=== PATIENT | female | born 2000 | race Caucasian/White ===

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

== ENCOUNTER 2019-10-18 20:13 | Emergency (ER) | payer BC, SELFPAY ==
[2019-10-18 20:15] VITALS: BP 133/82; PULSE 110; RESP 17; TEMP 36.9; O2SAT 98; BMI 22.1
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
[2019-10-18 21:13] VITALS: BP 132/80; PULSE 76; RESP 17; O2SAT 97
== END 2019-10-18 21:15 | disposition home or self-care (01) ==
LOC: ED 21:02
PROVIDERS: Emergency Provider Emergency Medicine; Family Provider Family Medicine; PCP Family Medicine
DX: S80.01XA Contusion of right knee, initial encounter (principal); W22.8XXA Striking against or struck by other objects, initial encounter; Y93.02 Activity, running; Y92.89 Other specified places as the place of occurrence of the external cause; Y99.8 Other external cause status
CPT/HCPCS: 73564; 99282

== ENCOUNTER → 2019-12-08 | Outpatient (CLI) | payer BC, SELFPAY ==
[2019-12-08 17:34] LABS: Chlamydia Trachomatis by PCR Negative (Negative); Neisserai gonorrhoeae by PCR Negative (Negative); Probe Check PASS; Sample Adequacy Control PASS; Specimen Processing Control PASS
== END | disposition home or self-care (01) ==
LOC: LABSPEC 12:27
PROVIDERS: PCP Family Medicine; Referring Provider Family Medicine; Visit Provider Family Medicine
DX: N39.0 Urinary tract infection, site not specified (principal)
CPT/HCPCS: 87077; 87086; 87088; 87186; 87491; 87591

== ENCOUNTER 2020-03-19 09:18 | Emergency (ER) | payer BC, SELFPAY ==
[2020-03-19 09:20] VITALS: BP 146/74; PULSE 81; RESP 18; TEMP 36.2; O2SAT 97; BMI 23.6
--- NOTE | 2020-03-19 09:35 | CT_ITS ---
STUDY: CT ABDOMEN AND PELVIS WITHOUT CONTRAST REASON FOR EXAM: Female, 19 years old. Right flank pain, UTI 1 month ago. No prior surgery. RADIATION DOSAGE (If Supplied By Facility): CTDIvol = ( 7.29 ) mGy, DLP = ( 396.82 ) mGycm TECHNIQUE: Transaxial images were obtained from the dome of the diaphragm to the symphysis pubis without oral contrast, and without intravenous contrast. Sagittal and coronal images were reconstructed. Individualized dose optimization techniques were used for this CT. COMPARISON: None. FINDINGS: The visualized lung bases are unremarkable. The visualized portions of the heart are within normal limits. Normal liver. Normal gallbladder and extrahepatic biliary system. Normal spleen. Normal pancreas. Normal bilateral adrenal glands. There is mild hydroureteronephrosis. There is no demonstrated ureteral or bladder calcifications. Normal left kidney. Normal visualized stomach. Normal small intestine. Normal colon. The appendix is visualized and appears normal. Normal abdominal aorta. Normal inferior vena cava. Normal retroperitoneum. There is mild thickening of the urinary bladder. There is enlarged right right adnexa (axial image #152 series 2) Normal abdominal wall. Normal osseous structures. CT/Abdomen/Pelvis without Cont IMPRESSION: Mild right hydroureteronephrosis. No demonstrated stones. Enlarged right adnexal region. Further evaluation with sonography is recommended. Mild thickening of the urinary bladder. Electronically Signed: Cristhian Tariq MD at 10:33 EDT Tel , Service support ,
[2020-03-19 09:37] LABS: Mucous, Urine 0 SEEN /hpf (<or=2+)
[2020-03-19 09:41] LABS: Color, Urine Straw (Yellow); Glucose, Dipstick Normal (Normal); Ketone-Dipstick Negative (Negative); Leukocyte Esterase-Dipstick 500 /ul (Negative); Nitrite-Dipstick Positive (Negative); Occult Blood-Urine 250 /ul (Negative); Protein-Dipstick 100 mg/dl (Negative); Specific Gravity, Urine 1.015 (1.002-1.030); Urine Bilirubin Dipstick Negative (Negative); Urine Clarity Sl. Cloudy (Clear); Urine Urobilinogen Normal (Normal)
[2020-03-19 09:46] LABS: Internal QC Validated? YES +Cl - CLEAR BKGD; Pregnancy, Urine Negative Negative
[2020-03-19 09:49] LABS: White Blood Cells >100 SEEN /hpf (0-5)
[2020-03-19 09:50] LABS: Red Blood Cells-Urine 10-25 SEEN /hpf (0-5)
[2020-03-19 09:51] LABS: Bacteria 3+ /hpf (None Seen); Squamous Epithelial Cells - UA 0-5 SEEN /hpf (5-10)
[2020-03-19 09:52] LABS: Renal Epithelial Cells 0-5 SEEN /hpf (0-5)
[2020-03-19 09:58] LABS: Absolute Lymphocyte Count 1.69 X10^3/uL (0.83-4.51); Absolute Neutrophil Count 9.2 X10^3/uL (2.0-7.7); Basophil# 0.03 X10^3/uL; Basophil% 0.3 % (0-1); Eosinophil# 0.04 X10^3/uL; Eosinophils% 0.3 % (0-5); Hematocrit 41.9 % (37-47); Hemoglobin 14.1 g/dL (12.0-15.0); Lymphocyte # 1.69 X10^3/ul (4.0); Lymphocyte % 14.3 % (19-41); Mean Corp Hgb Conc 33.7 g/dL (32-36); Mean Corpuscular Hgb 29.4 pg (27.0-32.0); Mean Corpuscular Volume 87.5 fL (81-99); Monocyte% 6.8 % (0-10); NRBC Flagged by Analyzer 0 % (0-5); Neutrophil # 9.18 X10^3/uL (2.7-7.7); Platelet Count 299 K/mm3 (150-450); RBC Distribution Width CV 11.9 % (11.6-14.6); RBC Distribution Width SD 38.1 fl (35.1-43.9); Red Blood Count 4.79 M/mm3 (4.2-5.4); White Blood Count 11.8 K/mm3 (4.4-11.0)
--- NOTE | 2020-03-19 09:58 | ED.VIS.GI ---
History of Present Illness Chief Complaint: Flank Pain Narrative: Patient presenting for evaluation secondary to flank pain. Patient reports that over the course of the last 2 to 3 days she has been dealing with right-sided flank pain. She states that this is a continuous type pain that is been getting somewhat worse over the last 24 hours. No exacerbating relieving factors, patient has been trying ibuprofen with minimal to no relief. Patient denies any other associated symptoms such as dysuria, vaginal discharge, radiation to the abdomen or groin, fevers, nausea, or vomiting. Patient reports that she is never had a history of kidney stones in the past. Review of systems otherwise negative. Past Medical History - Allergies and Home Meds Allergies/Adverse Reactions: Allergies No Known Allergies Allergy (Verified 03/19/20 09:22) Primary Care Physician: Sierra Mendez MD [Primary Care Provider] - Past Medical History: None Smoking Status: Never smoker Review of Systems All systems negative except as indicated General: Denies: Chills, Fever, Sweats Eyes: Denies: Visual changes - bilaterally, Diplopia ENT: Denies: Rhinorrhea, Sore throat Cardiovascular: Denies: Chest pain, Palpitations Respiratory: Denies: Dyspnea, Cough, Dyspnea on exertion Gastrointestinal: Denies: Abdominal pain, Nausea, Vomiting, Diarrhea, Melena, Hematochezia Genitourinary: Reports: - - Flank pain Musculoskeletal: Denies: Back pain, Extremity Pain Skin: Denies: Rash, Wounds Neurological: Denies: Headache, Weakness, Numbness Physical Exam Vital Signs/Narrative: Vital Signs Temp Pulse Resp BP Pulse Ox 03/19/20 09:20 97.2 F L 81 18 146/74 H 97 Inital Vital Signs reviewed: Yes General: Well nourished, Well developed, No Acute Distress Head: Normocephalic, Atraumatic Eyes: Perrl, EOMI ENT: Moist mucous membranes, No rhinorrhea Neck: Supple, Nontender Cardiovascular: Regular rate, Regular rhythm, No murmurs Respiratory: No distress, CTA bilaterally, Chest nontender Abdomen: Soft, Nontender, Nondistended, Normal bowel sounds Back: Nontender, Normal Inspection, CVA tenderness - Right Extremities: Nontender, No edema Skin: Normal color, No rash Neurological: Alert, Oriented x3, Cranial nerves II-XII grossly intact, Normal Strength, Normal Sensation Psychological: Normal affect, Normal Mood Diagnostic/Tx/Re-eval Clinical Impression(s) from Imaging Studies Abdomen/Pelvis CT 03/19/20 09:35 IMPRESSION: Mild right hydroureteronephrosis. No demonstrated stones. Enlarged right adnexal region. Further evaluation with sonography is recommended. Mild thickening of the urinary bladder. Electronically Signed: Cristhian Tariq MD at 10:33 EDT Tel , Service support , Pelvis Ultrasound 03/19/20 10:50 IMPRESSION: Retroverted uterus. Mild free pelvic fluid. Electronically Signed: Kunal Padron MD at 12:05 EDT Tel , Service support , Laboratory Data 03/19/20 03/19/20 03/19/20 09:27 09:27 09:45 WBC 11.8 H RBC 4.79 Hgb 14.1 Hct 41.9 MCV 87.5 MCH 29.4 MCHC 33.7 RDW Std Deviation 38.1 RDW Coeff of Sohail 11.9 Plt Count 299 MPV 10.0 Immature Gran % (Auto) 0.300 Neut % (Auto) 78.0 H Lymph % (Auto) 14.3 L Avery % (Auto) 6.8 Eos % (Auto) 0.3 Baso % (Auto) 0.3 Absolute Neuts (auto) 9.2 H Absolute Lymphs (auto) 1.69 Nucleated RBC % 0 Sodium Potassium Chloride Carbon Dioxide Anion Gap BUN Creatinine Estim Creat Clear Calc Est GFR (MDRD) Af Amer Est GFR (MDRD) Non-Af BUN/Creatinine Ratio Glucose Calcium Urine Color Straw Urine Clarity Sl. Cloudy Urine pH 6.0 Ur Specific [place] 1.015 Urine Protein 100 H Urine Glucose (UA) Normal Urine Ketones Negative Urine Occult Blood 250 H Urine Nitrite Positive H Urine Bilirubin Negative Urine Urobilinogen Normal Ur Leukocyte Esterase 500 H Urine RBC 10-25 SEEN Urine WBC >100 SEEN Ur Squamous Epith Cells 0-5 SEEN Ur Renal Epithelial Cell 0-5 SEEN Urine Bacteria 3+ Urine Mucus 0 SEEN Urine Test Negative 03/19/20 09:45 WBC RBC Hgb Hct MCV MCH MCHC RDW Std Deviation RDW Coeff of Sohail Plt Count MPV Immature Gran % (Auto) Neut % (Auto) Lymph % (Auto) Avery % (Auto) Eos % (Auto) Baso % (Auto) Absolute Neuts (auto) Absolute Lymphs (auto) Nucleated RBC % Sodium 139 Potassium 3.8 Chloride 108 H Carbon Dioxide 24.0 Anion Gap 7 BUN 9 Creatinine 0.67 Estim Creat Clear Calc 139.98 Est GFR (MDRD) Af Amer 144 Est GFR (MDRD) Non-Af 119 BUN/Creatinine Ratio 13.4 Glucose 96 Calcium 9.3 Urine Color Urine Clarity Urine pH Ur Specific [place] Urine Protein Urine Glucose (UA) Urine Ketones Urine Occult Blood Urine Nitrite Urine Bilirubin Urine Urobilinogen Ur Leukocyte Esterase Urine RBC Urine WBC Ur Squamous Epith Cells Ur Renal Epithelial Cell Urine Bacteria Urine Mucus Urine Test - Medical Decision Making Patient presented secondary to flank pain. Initially I performed a CT on the patient to rule out the possibility of kidney stone. CBC and chemistry found to be unremarkable, urinalysis demonstrates evidence of infection. This was cultured, and the patient was given a dose of Rocephin. Patient was given Toradol and did have some improvement of her pain. CT imaging reported right-sided hydronephrosis and concern for a right sided adnexal mass. Patient denies any STI type symptoms, although I did send urine empirically for GC and Chlamydia testing which is pending. We performed a pelvis ultrasound on the patient, and it showed a small amount of pelvic free fluid but no evidence of adnexal mass, tubo-ovarian abscess, or other abnormalities. Patient at this point likely has pyelonephritis. Patient will be treated with a course of Bactrim. She will follow-up with primary care in 3 days, she understands signs and symptoms which to return. Disposition: Home ED Disposition - Plan for ED Patient: Disposition: Home or Assisted Living Diagnosis: Pyelonephritis Instructions: ED Pyelonephritis Female Adult Prescriptions: Smz/Tmp Ds [Bactrim Ds] 1 tab PO BID #14 tab Prescription Printed Referrals: Sierra Mendez MD [Primary Care Provider] - 2 Days
[2020-03-19 10:21] LABS: Anion Gap 7 (5-15); BUN 9 mg/dL (7-18); BUN/Creat Ratio 13.4 RATIO (10-20); Calcium,Total 9.3 mg/dL (8.5-10.1); Chloride 108 mmol/L (98-107); Creatinine, Serum 0.67 mg/dL (0.55-1.02); EST Glomerular Filtration Rate 119 mL/min (>60); Est Glom Filt Rate - Afr Amer 144 mL/min (>60); Estimated Creatinine Clearance 139.98 ml/min; Glucose 96 mg/dL (74-106); Potassium 3.8 mmol/L (3.5-5.1); Sodium Level 139 mmol/L (136-145)
--- NOTE | 2020-03-19 10:50 | US_ITS ---
STUDY: ULTRASOUND OF THE FEMALE PELVIS - COMPLETE REASON FOR EXAM: Female, 19 years old. FLANK PAIN W/ persistent UTI LMP: 02/27/2020 TECHNIQUE: Transvaginal TECHNICAL QUALITY: Adequate. COMPARISON: None. FINDINGS: The uterus is retroverted and is in a midline position. The uterus measures 5.9 x 3.3 x 2.8 cm. Normal uterine cervix. The endometrium measures 12 mm in thickness, and is hyperechoic. There is no demonstrated endometrial mass. There is no demonstrated myometrial mass. I.U.D. - The patient does not have an I.U.D. The right ovary is visualized. The right ovary measures 4.0 x 3.0 x 2.6 cm. There is no right ovarian cyst or ovarian mass. There is no visualized right adnexal mass or complex lesion. There is normal arterial and normal venous vascularity. The left ovary is visualized. The left ovary measures 2.7 x 1.7 cm. There is no left ovarian cyst or ovarian mass. There is no visualized left adnexal mass or complex lesion. There is normal arterial vascularity. There is minimal fluid in the cul-de-sac.Polycystic ovary disease: No. US/Pelvic (Non ) IMPRESSION: Retroverted uterus. Mild free pelvic fluid. Electronically Signed: Kunal Padron MD at 12:05 EDT Tel , Service support ,
[2020-03-19] MEDS: Ketorolac 30 MG/ML Syringe 15 MG IV (10:53)
[2020-03-19] MEDS: Ceftriaxone 1 GM/50 ML BAG IV (10:54)
[2020-03-19 11:54] VITALS: BP 129/68; PULSE 66; RESP 15; O2SAT 99
[2020-03-19 11:56] VITALS: BP 124/71; PULSE 71; RESP 12; O2SAT 98
[2020-03-19 12:48] VITALS: BP 121/63; PULSE 72; RESP 15; O2SAT 99
[2020-03-19 14:07] LABS: Chlamydia Trachomatis by PCR Negative (Negative); Neisserai gonorrhoeae by PCR Negative (Negative); Probe Check PASS; Sample Adequacy Control PASS; Specimen Processing Control PASS
== END 2020-03-19 12:52 | disposition home or self-care (01) ==
PROVIDERS: Physician Assistant Medical; Emergency Provider Emergency Medicine; PCP Family Medicine
DX: N12 Tubulo-interstitial nephritis, not specified as acute or chronic (principal)
CPT/HCPCS: 74176; 76856; 80048; 81001; 81025; 85025; 87077; 87086; 87088; 87186; 87491; 87591; 96365; 96375; 99283; J7050; A4216; J2405

== ENCOUNTER → 2020-03-24 | Outpatient (CLI) | payer BC, SELFPAY ==
[2020-03-19 09:20] VITALS: BMI 23.6
--- NOTE | 2020-03-24 11:25 | US_ITS ---
STUDY: ABDOMINAL ULTRASOUND REASON FOR EXAM: Female, 19 years old. RIGHT FLANK PAIN TECHNIQUE: Transabdominal ultrasound was performed with real-time and static campos scale imaging. TECHNICAL QUALITY: Adequate. COMPARISON: None. FINDINGS: Liver: The liver measures 15.7 cm. There is increased echogenicity consistent with mild degree of fatty infiltration. The bile ducts are within normal limits. There is hepatic color flow. The direction of portal flow is hepatopetal. There is no demonstrated mass lesion. Portal vein measurement: Gallbladder: Normal distended gallbladder. The gallbladder wall measures 2.0 mm. There is a negative sonographic Raygoza''s sign. There is no pericholecystic fluid. There are no gallstones. Common Bile Duct (C.B.D.): The common bile duct measures 3.3 mm. Pancreas: Normal size of the head, body and tail of the pancreas. There is normal echogenicity of the pancreas. There is no demonstrated pancreatic mass or cyst. Spleen: Normal size of the spleen. The spleen measures 10.9 cm x 5.2 cm x 4.2 cm. Right Kidney: Normal size of the right kidney. The right kidney measures 11.2 cm x 5.3 cm x 3.7 cm. Normal renal cortex. The right cortex measures 1.4 cm. There is no demonstrated renal mass or cyst. There is no right hydronephrosis. Left Kidney: Normal size of the left kidney. The left kidney measures 10.6 cm x 4.9 cm x 4.4 cm. Normal renal cortex. The left cortex measures 1.2 cm. There is no demonstrated renal mass or cyst. There is no left hydronephrosis. Aorta: Unremarkable I.V.C.: The IVC is patent. There is no ascites. US/Abdomen Complete IMPRESSION: There is a mild degree of fatty infiltration of the liver. Electronically Signed: Brando Amador, at 14:30 EDT , Service support ,
== END | disposition home or self-care (01) ==
PROVIDERS: PCP Family Medicine; Visit Provider Family Medicine
DX: R10.9 Unspecified abdominal pain (principal)
CPT/HCPCS: 76700

== ENCOUNTER → 2020-07-11 | Outpatient (CLI) | payer BC, SELFPAY | END | disposition home or self-care (01) | PROVIDERS: PCP Family Medicine; Referring Provider Family Medicine; Visit Provider Family Medicine | DX: Z20.828 Contact with and (suspected) exposure to other viral communicable diseases (principal) | CPT/HCPCS: 87635; U0003 ==

== ENCOUNTER → 2021-08-20 | Outpatient (CLI) | payer SELFPAY | END | disposition home or self-care (01) | PROVIDERS: PCP Family Medicine; Referring Provider Registered Nurse; Visit Provider Registered Nurse | DX: N39.0 Urinary tract infection, site not specified (principal) ==

== ENCOUNTER → 2024-01-29 | Outpatient (CLI) | payer BC, SELFPAY ==
[2024-01-31 08:10] LABS: Chlamydia By Nucleic Acid AMP Negative (Negative); Gonococcus By Nucleic Acid AMP Negative (Negative)
== END | disposition home or self-care (01) ==
PROVIDERS: PCP Family Medicine; Referring Provider Advanced Practice Midwife; Visit Provider Advanced Practice Midwife
DX: Z34.00 Encounter for supervision of normal first pregnancy, unspecified trimester (principal); Z3A.00 Weeks of gestation of pregnancy not specified
CPT/HCPCS: 87086; 87491; 87591

== ENCOUNTER → 2024-03-25 | Outpatient (CLI) | payer BC, SELFPAY ==
[2024-03-25 09:07] LABS: Absolute Lymphocyte Count 1.97 X10^3/uL (0.83-4.51); Basophil# 0.04 X10^3/uL; Basophil% 0.5 % (0-1); Eosinophil# 0.07 X10^3/uL; Eosinophils% 0.8 % (0-5); Hematocrit 36.3 % (37-47); Hemoglobin 12.5 g/dL (12.0-15.0); Lymphocyte # 1.97 X10^3/ul (0.83-4.51); Lymphocyte % 22.7 % (19-41); Mean Corp Hgb Conc 34.4 g/dL (32-36); Mean Corpuscular Hgb 30.3 pg (27.0-32.0); Mean Corpuscular Volume 87.9 fL (81-99); Mean Platelet Vol. 9.9 fl (6.2-12.0); Monocyte# 0.51 X10^3/uL; Monocyte% 5.9 % (0-10); NRBC Flagged by Analyzer 0 % (0-5); Neutrophil # 6.03 X10^3/uL (2.7-7.7); Neutrophil % 69.5 % (47-70); Platelet Count 239 K/mm3 (150-450); RBC Distribution Width CV 12.7 % (11.6-14.6); RBC Distribution Width SD 40.9 fl (35.1-43.9); Red Blood Count 4.13 M/mm3 (4.2-5.4); White Blood Count 8.7 K/mm3 (4.4-11.0)
[2024-03-25 09:59] LABS: HIV - WCH Non-Reactive (Nonreactive); Hepatitis B Surface Antigen Non-Reactive (Nonreactive); Hepatitis C Antibody Non-Reactive (Nonreactive); Rubella IgG Reactive (Nonreactive); Syphilis Antibodies Non-reactive
[2024-03-26 06:10] LABS: V-Zoster IgG (Immunity) 1883 index (Immune >165)
== END | disposition home or self-care (01) ==
LOC: PAVLAB 08:36
PROVIDERS: PCP Family Medicine; Referring Provider Advanced Practice Midwife; Visit Provider Advanced Practice Midwife
DX: Z34.00 Encounter for supervision of normal first pregnancy, unspecified trimester (principal); Z3A.00 Weeks of gestation of pregnancy not specified; Z28.39 Other underimmunization status
CPT/HCPCS: 36415; 85025; 86703; 86762; 86780; 86787; 86803; 86850; 86900; 86901; 87340

== ENCOUNTER 2024-06-02 09:47 | Outpatient (CLI) | payer BC, SELFPAY ==
[2024-06-02 10:42] LABS: Absolute Lymphocyte Count 1.53 X10^3/uL (0.83-4.51); Absolute Neutrophil Count 6.8 X10^3/uL (2.0-7.7); Basophil# 0.03 X10^3/uL; Basophil% 0.3 % (0-1); Eosinophil# 0.06 X10^3/uL; Eosinophils% 0.7 % (0-5); Hematocrit 33.2 % (37-47); Hemoglobin 11.2 g/dL (12.0-15.0); Lymphocyte # 1.53 X10^3/ul (0.83-4.51); Mean Corp Hgb Conc 33.7 g/dL (32-36); Mean Corpuscular Hgb 29.7 pg (27.0-32.0); Mean Corpuscular Volume 88.1 fL (81-99); Mean Platelet Vol. 10.4 fl (6.2-12.0); Monocyte# 0.59 X10^3/uL; Monocyte% 6.5 % (0-10); NRBC Flagged by Analyzer 0 % (0-5); Neutrophil # 6.75 X10^3/uL (2.7-7.7); Neutrophil % 74.8 % (47-70); Platelet Count 224 K/mm3 (150-450); RBC Distribution Width CV 12.5 % (11.6-14.6); RBC Distribution Width SD 39.8 fl (35.1-43.9); Red Blood Count 3.77 M/mm3 (4.2-5.4)
[2024-06-02 10:59] LABS: Glucose Challenge Gest 1H 50g 117 mg/dL (70-140)
[2024-06-02 11:32] LABS: HIV - WCH Non-Reactive (Nonreactive); Syphilis Antibodies Non-reactive
== END 2024-06-02 23:59 | disposition home or self-care (01) ==
PROVIDERS: PCP Family Medicine; Referring Provider Nurse Practitioner Women's Health; Visit Provider Nurse Practitioner Women's Health
DX: Z34.92 Encounter for supervision of normal pregnancy, unspecified, second trimester (principal); Z3A.22 22 weeks gestation of pregnancy; Z13.1 Encounter for screening for diabetes mellitus
CPT/HCPCS: 36415; 82950; 85025; 86703; 86780

== ENCOUNTER 2024-08-06 | Inpatient (IN) | payer OTHER, SELFPAY ==
--- OUTSIDE RECORDS SUMMARY | 2024-08-05 22:59 | XMS RPT_ITS | CCD ---
Author Organization [facility] Care Team Providers Care Printed Forms Proofreader Name Role Phone HIMANSHU ARCE Referring UnavailHALEY Ward Primary Care Unavailable HANNAH LEMA Attending Unavailable HIMANSHU ARCE Referring UnavailHALEY Wrad Primary Care Unavailable DAVION RANKIN Attending Unavailable HIMANSHU ARCE Attending UnavailHIMANSHU Acosta Referring UnavailHALEY Ward Primary Care Unavailable HIMANSHU ARCE Referring UnavailELLE Leblanc Attending Unavailable HALEY SAHU Primary Care Unavailable HIMANSHU ARCE Referring UnavailRONEY Merchant Attending Unavailable HALEY SAHU Primary Care Unavailable Encounters Encounter Date Encounter Type Care Provider Facility Start: 07-27-2024 End: 07-27-2024 ambulatory [facility]U [facility] Start: 06-28-2024 End: 06-28-2024 ambulatory HIMANSHU ARCE [facility] Start: 05-31-2024 End: 05-31-2024 ambulatory HIMANSHU ARCE [facility] Start: 05-05-2024 End: 05-05-2024 ambulatory HIMANSHU ARCE [facility] Start: 04-15-2024 End: 04-15-2024 ambulatory HIMANSHU ARCE [facility] Payers Date Payer Category Payer Unknown [id number] 1999 Unknown [id number]. [id number] 1999 Unknown [id number] 1999 Unknown [id number]. [id number] Unknown [id number] Summary Purpose Family History No Family History Records Found Advance Directives No Advanced Directives Records Found Additional Source Comments INFORMATION SOURCE (unrecogn ized section and content) DATE CREATED AUTHOR 07/28/2024 [place] FOR RECORDS PERTAINING TO PATIENTS WHO ARE OR HAVE BEEN ENROLLED IN A CHEMICAL DEPENDENCY/SUBSTANCEABUSE PROGRAM, SOME INFORMATION MAY BE OMITTED. This clinical summary was aggregated from multiple sources. Caution should be exercised in using it in the provision of clinical care. This summary normalizes information from multiple sources, and as a consequence, information in this document may materially change the coding, format and clinical context of patient data. In addition, data may be omitted in some cases. CLINICAL DECISIONS SHOULD BE BASED ON THE PRIMARY CLINICAL RECORDS. [employer] provides no warranty or guarantee of the accuracy or completeness of information in this document.
[2024-08-05 23:03] VITALS: BMI 33.3
[2024-08-05 23:16] VITALS: BP 138/88; PULSE 86; RESP 16; TEMP 37.4; O2SAT 98
[2024-08-05 23:36] VITALS: PULSE 79; O2SAT 98
[2024-08-05 23:41] VITALS: PULSE 81; O2SAT 98
[2024-08-05 23:46] VITALS: PULSE 83; O2SAT 98
[2024-08-05 23:51] VITALS: PULSE 84; O2SAT 98
[2024-08-05 23:56] VITALS: PULSE 93; O2SAT 98
[2024-08-05 23:58] LABS: ROM Internal Control Test YES-OK TO RESULT pt. (Internal QC); ROM Patient Test POSITIVE (Negative)
[2024-08-06] VITALS (74 sets, daily range): BP systolic 100–208; BP diastolic 54–142; PULSE 68–166; RESP 14–20; TEMP 36.5–37.7; O2SAT 96–99
--- NOTE | 2024-08-06 | PLAC_PTH ---
PATHOLOGY RESULTS PATIENT: MARILU TATE LOC: WP U#:[id number] AGE/SX: 23/F ROOM: WP017 RE08/06/[address]: Lisa Rubio CNM : 2000 BED: 1 DIS: 08/08/2024 SPEC #: [id number] RECD: 08/06/24 21:56 STATUS: ISMA RELuca #: [id number] LILY: 08/06/24 00:[address]: Lisa Rubio DEPT: SURGICAL PATHOLOGY RECD BY: Ashok John ENTERED: 08/09/24 08:17 SP TYPE: PLACENTA OTHR DR: Dr. Ren Webster MD Tissues: Placenta, NOS Procedures: Surgery Specimen Level V HEADER OPERATION: Vaginal delivery PRE-OP DIAGNOSIS: PPROM TISSUE SUBMITTED: Placenta MICROSCOPIC DIAGNOSIS Placenta: Placental disc - third trimester placenta (450 gm). Membranes - no pathologic diagnosis. Umbilical cord - three blood vessels and no pathologic diagnosis. SJ:mr 08/10/2024 MICROSCOPIC DESCRIPTION Slides are reviewed. GROSS DESCRIPTION SPECIMEN: PLACENTA / CLINICAL INFORMATION: A. Weight: 2.865 kg B. Gestational Age: 36 weeks C. Sex: Male PLACENTAL WEIGHT (POST FIXATION): 450 gm PLACENTAL DIMENSIONS: 18.5 x 17.0 x 3.0 cm PLACENTAL SHAPE: Usual ovoid PLACENTAL WEIGHT FOR GESTATIONAL AGE: Within 10-99th percentile MEMBRANES - Present A. Insertion: Marginal B. Site of rupture from edge: 5.0 cm from edge of placental disc C. Color of membrane: Craig-campos D. Abnormalities: None UMBILICAL CORD - Present A. Color: Craig-campos B. Insertion: Paracentral C. Length: 38.0cm D. Diameter: 1.0 cm E. Number of vessels: Three F. Abnormalities: None PLACENTAL DISC - Present A. Color of surface: Craig-campos B. surface abnormalities: None C. Maternal cotyledons: Intact with minimal tears D. Attached retro placental clot: A few retro placental blood clots are also noted E. Cut surface: Dark red and spongy F. Lesions: None G. Separate clot: Multiple blood clots weighing 28gm and measuring in aggregate 7.0 x 6.0 x 2.5cm SECTIONS SUBMITTED: (6 cassettes) 1. Membrane roll 2. Cord, maternal end 3. Cord, end 4. Placental disc, and maternal surfaces 5. Placental disc, and maternal surfaces 6. Placental disc, and maternal surfaces SJ.mr 08/09/2024 TC:5 CPT: 92700
--- OUTSIDE RECORDS SUMMARY | 2024-08-06 00:05 | XMS RPT_ITS | CCD ---
Author Organization [facility] Care Team Providers Care Motion Picture Scene Builder Name Role Phone HIMANSHU ARCE Referring UnavailHALEY Ward Primary Care Unavailable HANNAH LEMA Attending Unavailable HIMANSHU ARCE Referring UnavailHALEY Ward Primary Care Unavailable DAVION RANKIN Attending Unavailable [...] Start: 06-28-2024 End: 06-28-2024 ambulatory HIMANSHU ARCE [facility] Start: 05-31-2024 End: 05-31-2024 ambulatory HIMANSHU ARCE [facility] Start: 05-05-2024 End: 05-05-2024 ambulatory HIMANSHU ARCE [facility] Start: 04-15-2024 End: 04-15-2024 ambulatory HIMANSHU ARCE [facility] Payers Date Payer Category Payer Unknown [id number] [id number] 1999 Unknown [id number] 2.16. [id number] 1999 Unknown [id number]. [id number] 1999 Unknown [id number] 2.16. [id number] Unknown [id number] Summary Purpose Family History No Family History Records Found Advance Directives No Advanced Directives Records Found Additional Source Comments INFORMATION SOURCE (unrecogn ized section and content) DATE CREATED AUTHOR 07/28/2024 [facility] FOR RECORDS PERTAINING TO PATIENTS WHO ARE [...] BE BASED ON THE PRIMARY CLINICAL RECORDS. [employer] provides no warranty or guarantee of the accuracy or completeness of information in this document.
[2024-08-06 00:29] LABS: Absolute Lymphocyte Count 2.33 X10^3/uL (0.83-4.51); Absolute Neutrophil Count 7.9 X10^3/uL (2.0-7.7); Basophil# 0.05 X10^3/uL; Basophil% 0.4 % (0-1); Eosinophil# 0.13 X10^3/uL; Eosinophils% 1.1 % (0-5); Hematocrit 35.1 % (37-47); Hemoglobin 11.7 g/dL (12.0-15.0); Lymphocyte # 2.33 X10^3/ul (0.83-4.51); Mean Corp Hgb Conc 33.3 g/dL (32-36); Mean Corpuscular Hgb 28.1 pg (27.0-32.0); Mean Corpuscular Volume 84.4 fL (81-99); Mean Platelet Vol. 11.8 fl (6.2-12.0); Monocyte# 1.14 X10^3/uL; Monocyte% 9.8 % (0-10); NRBC Flagged by Analyzer 0 % (0-5); Neutrophil % 67.8 % (47-70); Platelet Count 225 K/mm3 (150-450); RBC Distribution Width CV 12.9 % (11.6-14.6); RBC Distribution Width SD 39.8 fl (35.1-43.9); Red Blood Count 4.16 M/mm3 (4.2-5.4); White Blood Count 11.7 K/mm3 (4.4-11.0)
[2024-08-06] MEDS: Ampicillin 2 GM in 0.9% Normal Saline (100mL MB+) 100 ML IV (00:38)
[2024-08-06 01:08] LABS: Syphilis Antibodies Non-reactive
[2024-08-06] MEDS: Lactated Ringers 1,000 ML 999 ML IV (01:20)
[2024-08-06 01:54] LABS: Group B Strep DNA By PCR Negative (Negative); Internal Control PASS; Probe Check PASS; Specimen Processing Control PASS
[2024-08-06] MEDS: fentaNYL-bupivacaine (epidural) 100 ML BAG EPIDURAL ×3 (02:15→11:15)
[2024-08-06] MEDS: Lactated Ringers 1,000 ML 50 ML IV (02:15)
--- NOTE | 2024-08-06 05:24 | HP.PCM.OB_ITS ---
HPI - General General Date of Admission: 08/06/24 HPI Narrative MARILU TATE, is a 23 F @ 36w1d who presents with SROM clear fluid regular ctx. uncomlicated Maternal Data Information XAVIER Calculator Estimated Delivery Date Method Current WG Current Estimate 09/02/24 LMP (Certain) 36w 1d PFSH PFSH Medical History no medical history Home Medications ?Medication ?Instructions ?Recorded ?Last Taken ?Type multivitamin no.47-iron fum 27 1 cap PO DAILY 01/20/24 Unknown History mg-folate no.1 1 mg-dha 300 mg capsule (PNV-DHA) Allergy/AdvReac Type Severity Reaction Status Date / Time No Known Allergies Allergy Verified 07/27/24 09:10 Social History adopted: No household members: significant other current occupational status: employed current occupation: Operations Support Coordinator current occupational exposures/hazards: No pets and animals: Yes (Avoid litterbox) pets and animals: cat(s) history of recent travel: Yes ([place]) out of state: Yes out of country: No sexually active: Yes Smoking Status: Never smoker alcohol intake: current alcohol intake frequency: a few times a month details: Not while substance use type: does not use well-balanced diet: daily or most days caffeine: No eating out: 1-3 times/week during the past year weight has: remained stable what type of physical activity do you participate in: walking frequency: daily duration: < 15 minutes/day lien/worship: [employer] seatbelt use: always do you feel safe at home: Yes additional social history: ANTHONY Lopez History 1 Elective abortions Hx Para 0 Spontaneous abortions Hx # Term Pregnancies Ectopic pregnancies Hx # Pregnancies Multiple births # of living children Visit Details Expected Delivery Route/Plan Labor Preferences- CB/BF classes: encouraged labor support person: John; her mom Charlene labor intervention preferences: [] pain management options preferred: epidural cut cord/dad catch: no : yes PP control planned: discussed discussed possible routes of delivery and associated risks: [] special requests: [] Plans Covid status: [] Flu vaccine: declined Tdap vaccine: declines Rhogam: NA LARC form signed: yes movement and labor precautions reviewed. Problem list reviewed and updated with the most current plan of care details and appropriate orders placed. Relevant counseling for the gestational age provided. Continue routine care and follow up unless otherwise noted in visit notes/problem list details OB Flowsheet Initial Weight: Not Recorded Date -?-?-?-?-?-?-?-?-?-?-?-?- EGA Weight BP Urine Prot -?-?-?-?-?-?-?-?-?-?-?-?- Glucose FHR FuHt Pres Dilation -?-?-?-?-?-?-?-?-?-?-?-?- Effaced St Visit Note 01/29/24 -?-?-?-?-?-?-?-?-?-?-?-?- 9w 0d 174 lb 132/83 -?-?-?-?-?-?-?-?-?-?-?-?- 171 -?-?-?-?-?-?-?-?-?-?-?-?- kw- CRL cons wit h dates. wants to decide on NIPT. HAs history of medical trauma. was very tearful at appt. only able to obtain GCC today. will need PP pap 02/26/24 -?-?-?--?-?-?-?-?-?-?-?-?- 13w 0d 177 lb 120/76 Negative -?-?-?-?-?-?-?-?-?-?-?-?- Negative 160 -?-?-?-?-?-?-?-?-?-?-?-?- MH-No VB or cram ping. Declines genetic and carrier screen. Nausea problematic-[place] sent. 03/22/24 -?-?-?-?-?-?-?-?-?-?-?-?- 16w 4d 179 lb 116/74 Negative -?-?-?-?-?-?-?-?-?-?-?-?- Negative 150 -?-?-?-?-?-?-?-?-?-?-?-?- SM- no vb crmapi ng 05/04/24 -?-?-?-?-?-?-?-?-?-?-?-?- 22w 5d 189 lb 2 oz 109/70 Nega tive -?-?-?-?-?-?-?-?-?-?-?-?- Negative 146 -?-?-?-?-?-?-?-?-?-?-?-?- -No VB, LOF. G ood FM. -No VB, LOF. Good FM. Edgar mckeon concerns. Has follow up US with MFM tomorrow 06/02/24 -?-?-?-?-?-?-?-?-?-?-?-?- 26w 6d 196 lb 107/64 Negative -?-?-?-?-?-?-?-?-?-?-?-?- Negative 135 26 -?-?-?-?-?-?-?-?-?-?-?-?- JV- pt doing glu cola today. no complaints. naming baby [place]. 06/17/24 -?-?-?-?-?-?-?-?-?-?-?-?- 29w 0d 201 lb 123/80 Negative -?-?-?-?-?-?-?-?-?-?-?-?- Negative 125 29 -?-?-?-?-?-?-?-?-?-?-?-?- - no vb lof go od fm no regular ctx baseline fht difficult to discern at bedside, nst done and reactive, GA appropriate no signifciant decels, hiccups heard 06/28/24 -?-?-?-?-?-?-?-?-?-?-?-?- 30w 4d 201 lb 6 oz 115/78 Nega tive -?-?-?-?-?-?-?-?-?-?-?-?- Negative 139 30 -?-?-?-?-?-?-?-?-?-?-?-?- -NO VB, LOF. G ood FM. Declines tdap. Larc. 07/12/24 -?-?-?-?-?-?-?-?-?-?-?-?- 32w 4d 204 lb 120/82 Negative -?-?-?-?-?-?-?-?-?-?-?-?- Negative 130 33 -?-?-?-?-?-?-?-?-?-?-?-?- kw- no vb/lof/ct x. good fm. no concerns 07/27/24 -?-?-?-?-?-?-?-?-?-?-?-?- 34w 5d 212 lb 117/79 Negative -?-?-?-?-?-?-?-?-?-?-?-?- Negative 140 36 -?-?-?-?-?-?-?-?-?-?-?-?- SM- no vb lof go od fm no regulr ctx NST FHR Rate Baby A Baseline: 140 Variability:: Moderate Accelerations:: 15 x 15 Decelerations:: None NST Reactive:: Yes FHR Category:: Category I Uterine Activity:: q3-5 ROS Constitutional Constitutional: Reports systems reviewed and no addt'l complaints, except as documented ENT HEENT: Reports systems reviewed and no addt'l complaints, except as documented Cardiovascular Cardiovascular: Reports systems reviewed and no addt'l complaints, except as documented Respiratory/Chest Respiratory/Chest: Reports systems reviewed and no addt'l complaints, except as documented Gastrointestinal Gastrointestinal: Reports systems reviewed and no addt'l complaints, except as documented and nausea; Denies abdominal pain Genitourinary Genitourinary: Reports systems reviewed and no addt'l complaints, except as documented, contractions Details: present and frequency (regular ) and movement Details: present Musculoskeletal Musculoskeletal: Reports systems reviewed and no addt'l complaints, except as do cumented Integumentary Integumentary: Reports as per HPI Neurologic Neurologic: Reports systems reviewed and no addt'l complaints, except as documented Endocrine Endocrinology: Reports systems reviewed and no addt'l complaints, except as documented Vital Signs Vital Signs Vital Signs: 08/05/24 23:16 08/05/24 23:16 08/05/24 23:16 Temperature Temperature Source Temporal Pulse Rate 86 Respiratory Rate Blood Pressure 138/88 H BP Systolic 138 BP Diastolic 88 Pulse Ox 08/05/24 23:16 08/05/24 23:16 08/05/24 23:16 Temperature 99.4 F H Temperature Source Pulse Rate Respiratory Rate 16 Blood Pressure BP Systolic BP Diastolic Pulse Ox 98 08/05/24 23:36 08/05/24 23:36 08/05/24 23:41 Temperature Temperature Source Pulse Rate 79 81 Respiratory Rate Blood Pressure BP Systolic BP Diastolic Pulse Ox 98 08/05/24 23:41 08/05/24 23:46 08/05/24 23:46 Temperature Temperature Source Pulse Rate 83 Respiratory Rate Blood Pressure BP Systolic BP Diastolic Pulse Ox 98 98 08/05/24 23:51 08/05/24 23:51 08/05/24 23:56 Temperature Temperature Source Pulse Rate 84 93 Respiratory Rate Blood Pressure BP Systolic BP Diastolic Pulse Ox 98 08/05/24 23:56 08/06/24 00:01 08/06/24 00:01 Temperature Temperature Source Pulse Rate 92 Respiratory Rate Blood Pressure BP Systolic BP Diastolic Pulse Ox 98 98 08/06/24 00:06 08/06/24 00:06 08/06/24 00:11 Temperature Temperature Source Pulse Rate 83 93 Respiratory Rate Blood Pressure BP Systolic BP Diastolic Pulse Ox 98 08/06/24 00:11 08/06/24 01:33 08/06/24 01:33 Temperature Temperature Source Pulse Rate 81 Respiratory Rate Blood Pressure 160/85 H BP Systolic 160 BP Diastolic 85 Pulse Ox 98 08/06/24 01:33 08/06/24 01:35 08/06/24 01:35 Temperature Temperature Source Pulse Rate 82 Respiratory Rate Blood Pressure 168/84 H BP Systolic 168 BP Diastolic 84 Pulse Ox 97 08/06/24 01:35 08/06/24 01:35 08/06/24 01:35 Temperature 98.5 F Temperature Source Temporal Pulse Rate Respiratory Rate 14 Blood Pressure BP Systolic BP Diastolic Pulse Ox 08/06/24 01:56 08/06/24 01:56 08/06/24 01:57 Temperature Temperature Source Pulse Rate 108 H Respiratory Rate Blood Pressure 208/123 H BP Systolic 208 BP Diastolic 123 Pulse Ox 98 08/06/24 01:57 08/06/24 01:59 08/06/24 01:59 Temperature Temperature Source Pulse Rate 117 H 166 H Respiratory Rate Blood Pressure 161/73 H BP Systolic 161 BP Diastolic 73 Pulse Ox 08/06/24 01:59 08/06/24 02:01 08/06/24 02:01 Temperature Temperature Source Pulse Rate 111 H Respiratory Rate 20 H Blood Pressure BP Systolic BP Diastolic Pulse Ox 99 08/06/24 02:06 08/06/24 02:06 08/06/24 02:07 Temperature Temperature Source Pulse Rate 92 Respiratory Rate Blood Pressure 156/71 H BP Systolic 156 BP Diastolic 71 Pulse Ox 97 08/06/24 02:07 08/06/24 02:07 08/06/24 02:11 Temperature Temperature Source Pulse Rate 93 83 Respiratory Rate 14 Blood Pressure BP Systolic BP Diastolic Pulse Ox 08/06/24 02:11 08/06/24 02:14 08/06/24 02:14 Temperature Temperature Source Pulse Rate 91 Respiratory Rate Blood Pressure 147/79 H BP Systolic 147 BP Diastolic 79 Pulse Ox 98 08/06/24 02:14 08/06/24 02:16 08/06/24 02:16 Temperature Temperature Source Pulse Rate 94 Respiratory Rate 16 Blood Pressure BP Systolic BP Diastolic Pulse Ox 99 08/06/24 02:17 08/06/24 02:17 08/06/24 02:17 Temperature Temperature Source Pulse Rate 93 Respiratory Rate 14 Blood Pressure 135/71 H BP Systolic 135 BP Diastolic 71 Pulse Ox 08/06/24 02:21 08/06/24 02:21 08/06/24 02:22 Temperature Temperature Source Pulse Rate 92 Respiratory Rate Blood Pressure 127/60 H BP Systolic 127 BP Diastolic 60 Pulse Ox 98 08/06/24 02:22 08/06/24 02:22 08/06/24 02:26 Temperature Temperature Source Pulse Rate 92 89 Respiratory Rate 18 Blood Pressure BP Systolic BP Diastolic Pulse Ox 08/06/24 02:26 08/06/24 02:27 08/06/24 02:27 Temperature Temperature Source Pulse Rate 88 Respiratory Rate Blood Pressure 128/67 H BP Systolic 128 BP Diastolic 67 Pulse Ox 98 08/06/24 02:31 08/06/24 02:31 08/06/24 02:32 Temperature Temperature Source Pulse Rate 90 Respiratory Rate Blood Pressure 134/73 H BP Systolic 134 BP Diastolic 73 Pulse Ox 97 08/06/24 02:32 08/06/24 02:36 08/06/24 02:36 Temperature Temperature Source Pulse Rate 88 84 Respiratory Rate Blood Pressure BP Systolic BP Diastolic Pulse Ox 97 08/06/24 02:37 08/06/24 02:37 08/06/24 02:41 Temperature Temperature Source Pulse Rate 84 88 Respiratory Rate Blood Pressure 129/67 H BP Systolic 129 BP Diastolic 67 Pulse Ox 08/06/24 02:41 08/06/24 02:42 08/06/24 02:42 Temperature Temperature Source Pulse Rate 91 Respiratory Rate Blood Pressure 137/76 H BP Systolic 137 BP Diastolic 76 Pulse Ox 98 08/06/24 02:47 08/06/24 02:47 08/06/24 03:40 Temperature Temperature Source Pulse Rate 95 Respiratory Rate Blood Pressure 142/85 H 103/56 L BP Systolic 142 103 BP Diastolic 85 56 Pulse Ox 08/06/24 03:40 08/06/24 03:40 08/06/24 03:40 Temperature Temperature Source Pulse Rate 82 90 Respiratory Rate Blood Pressure BP Systolic BP Diastolic Pulse Ox 98 08/06/24 03:40 08/06/24 03:40 08/06/24 03:40 Temperature 97.7 F L Temperature Source Temporal Pulse Rate Respiratory Rate 14 Blood Pressure BP Systolic BP Diastolic Pulse Ox 08/06/24 04:25 08/06/24 04:25 08/06/24 04:26 Temperature Temperature Source Pulse Rate 84 Respiratory Rate Blood Pressure 106/59 L BP Systolic 106 BP Diastolic 59 Pulse Ox 97 08/06/24 04:26 08/06/24 04:26 08/06/24 04:26 Temperature Temperature Source Temporal Pulse Rate 85 Respiratory Rate 14 Blood Pressure BP Systolic BP Diastolic Pulse Ox 08/06/24 04:26 Temperature 98.9 F Temperature Source Pulse Rate Respiratory Rate Blood Pressure BP Systolic BP Diastolic Pulse Ox Weight Weight: 219 lb 5.759 oz Body Mass Index (BMI) 33.3 Physical Exam Const alert, oriented x3 and healthy appearing Constitutional Narrative: uncomfortable with contractions HEENT normocephalic and moist oral mucous membranes Head and Scalp: atraumatic Neck full ROM, no lymphadenopathy, supple and thyroid normal General: trachea midline Thyroid: thyroid normal Lymph Lymphatic: no lymphadenopathy noted Chest inspection of chest normal Resp normal respiratory effort Cardio regular rate GI normal to inspection, nondistended, normoactive bowel sounds, soft to palpation and non-tender Inspection: gravid external exam normal Bimanual Exam - Vag & Uterus: uterus non-tender Manual OB Exam: estimated gestational size appropriate, presentation cephalic, dilated, effaced and station Extremity normal to inspection General Extremity: Negative for edema Skin no rashes or lesions noted Neuro deep tendon reflexes 2+ bilaterally Motor Exam: strength 5/5 throughout and clonus absent Psych mental status grossly normal Labs Labs Labs: Blood Type O POSITIVE Antibody Screen NEGATIVE Hct 35.1 % (37-47) L Hgb 11.7 g/dL (12.0-15.0) L Syphilis Total Ab Non-reactive VZV IgG Antibody 1883 index (Immune >165) Rubella IgG Antibody Reactive (Nonreactive) Hep Bs Antigen Non-Reactive (Nonreactive) Hepatitis C Antibody Non-Reactive (Nonreactive) Chlamydia DNA (BELTRAN) Negative (Negative) N.gonorrhoeae DNA (BELTRAN) Negative (Negative) HIV 1&2 Antibody Non-Reactive (Nonreactive) Glucose 1 Hr 50 gm 117 mg/dL (70-140) Group B Strep DNA Negative (Negative) Assessment & Plan (1) 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 anatomy reveiwed (4) SROM (spontaneous rupture of membranes): PLAN: Plan Patient presents IAL, plan expectant management for , pitocin/AROM PRN if needed. Pain management: plans epidural. GBS unknown plan ampicillin. Management of any complications: none I have reviewed the [facility] and made any clinically relevant updates.
[2024-08-06] MEDS: Ampicillin 1,000 MG in 0.9% Normal Saline (50mL MB+) 50 ML 150 MG IV ×3 (05:38→13:46)
--- NOTE | 2024-08-06 08:42 | PN.OBGYN_ITS ---
Subjective Subjective comfortable with epidural Objective Data Objective Data Vital Signs: Vital Signs Temp Pulse Resp BP Pulse Ox 98.9 F 73 16 107/57 L 99 08/06/24 08:02 08/06/24 08:02 08/06/24 08:02 08/06/24 08:02 08/06/24 05:34 Weight: 219 lb 5.759 oz Body Mass Index (BMI) 33.3 Intake & Output: Intake and Output for Last 24 Hours 08/04/24 08/05/24 08/06/24 23:59 23:59 23:59 Intake Total 1150 / 1150 Output Total 700 / 700 Balance 450 / 450 Lab / Micro Data 08/06/24 00:15 Labs: Laboratory Results - last 24 hr 08/05/24 23:20: Vag Amniotic Fld Detect POSITIVE H, Group B Strep DNA Negative, Specimen Comment Not Reportable 08/06/24 00:15: WBC 11.7 H, RBC 4.16 L, Hgb 11.7 L, Hct 35.1 L, MCV 84.4, MCH 28.1, MCHC 33.3, RDW Std Deviation 39.8, RDW Coeff of Sohail 12.9, Plt Count 225, MPV 11.8, Immature Gran % (Auto) 0.900, Neut % (Auto) 67.8, Lymph % (Auto) 20.0, [place] % (Auto) 9.8, Eos % (Auto) 1.1, Baso % (Auto) 0.4, Absolute Neuts (auto) 7.9 H, Absolute Lymphs (auto) 2.33, Nucleated RBC % 0, Syphilis Total Ab Non- reactive, Blood Type O POSITIVE, Antibody Screen NEGATIVE Physical Exam Const alert Resp normal respiratory effort and normal air movement Manual OB Exam: presentation cephalic, dilated 7, effaced 90 and station 0 Amniotic Fluid: clear amniotic fluid Psych mental status grossly normal NST FHR Rate Baby A Baseline: 135 Variability:: Moderate Accelerations:: 15 x 15 Decelerations:: None NST Reactive:: Yes FHR Category:: Category I Uterine Activity:: q3 Assessment & Plan (1) SROM (spontaneous rupture of membranes): COMMENT: clear fluid. antibiotics for PPROM (2) Spontaneous onset of labor: COMMENT: Pitocin prn PLAN: cervical exam by 4 hours, if no change plan to add pitocin continue frequent reposition changes
[2024-08-06] MEDS: Oxytocin 10 UNITS/ML Vial IM (14:13)
--- NOTE | 2024-08-06 14:17 | OP.PCM_ITS ---
Assessment & Plan (1) (spontaneous vaginal delivery): COMMENT: EDWIN 36 weeks PPROM [place] Maternal Data Information XAVIER Calculator Estimated Delivery Date Method Current WG Current Estimate 09/02/24 LMP (Certain) 36w 1d Final XAVIER: 09/02/24 Final XAVIER Source: LMP Gestational age: 36 Vaginal Delivery Maternal Presentation Maternal Presentation: Spontaneous Rupture of Membranes Maternal Presentation: at 36 weeks with PPROM last night at 2230, clear fluid. spontaneous contractions progressed without intervention to fully dilated. Operative Information Date of Procedure: 08/06/24 Pre-Operative Diagnosis: see problem list Surgery / Procedure Performed: Spontaneous Vaginal Delivery Type of Anesthesia: Epidural Drain: Bustos to straight drain Estimated Blood Loss: 200 Time of Delivery: 13:55 Findings Description of Procedure: Patient began pushing and delivered the head in the DANYEL presentation. The head was delivered atraumatically and a loose nuchal cord ?1 was identified and easily reduced over the 's head. The anterior and posterior shoulders delivered without complication followed by the rest of the and the infant was placed on the maternal abdomen. Delayed cord clamping was employed for approximately 60 seconds. Cord was clamped and cut and gentle traction was applied to the cord and the placenta delivered spontaneously immediately following it was noted to be intact with three-vessel cord. The perineum and vagina were inspected and noted to have a 1st degree laceration that was repaired with 3-0 vicyrl. EBL was 200cc. Patient and infant tolerated delivery well. Dr. Montenegro updated on delivery. Presentation: Vertex Amniotic Membrane Rupture Type: Spontaneous Amniotic Fluid Description: Clear Placental Delivery Description: Spontaneous Placenta Disposition: [facility] Cord Vessel Description: 3 Vessels Cord Entanglement: Around neck x 1, loose Infant A Gender: Male (1 minute): 8 (5 minute): 9 Delayed Cord Clamping: Yes Post Vaginal Delivery Medications Given After Delivery: IM Pitocin Episiotomy Description: None Laceration: 1st degree Procedures Urinary/Genital [id number]: [id number] Vaginal Delivery [facility]
--- NOTE | 2024-08-06 14:22 | DCINST_ITS ---
Discharge Instructions Diet Discharge Diet: No restrictions Activity Discharge Activity: May Not Drive and May Shower May resume sexual activity in: 6 weeks Weight Bearing Status: Full weight bearing Dressing / Incision Call your doctor if your incision/area has: Sudden Increased Bleeding, Increased Pain/ Swelling and Foul Smelling Discharge Call your doctor if you observe: Fever of 101 or Higher, Numbness or Tingling, Change in Color, Inability to urinate, Inability to have a bowel movement, Using more than 1 pad per hour, Shortness of breath, Dizziness, Fainting spells, Chest pain, Calf discomfort and Uncontrolled pain Follow Up Care Please Follow Up With: Lisa Rubio CNM When: 6 weeks , please call office to make an appointment. Congratulations on the of your baby! Test Results: Test results from this visit will be discussed in further detail at your follow- up appointment, if applicable. Discharge Plan Admission Admit Date/Time: 08/06/24 00:00 Attending Provider: Lisa Rubio Primary Care Provider: Ren Webster Discharge Orders/Prescriptions Prescriptions: No Action PNV-DHA 27 mg iron-1 mg -300 mg capsule 1 cap PO DAILY Referrals / Follow Up: Ren Webster MD [Primary Care Provider] -
[2024-08-06] MEDS: Naproxen 500 MG Tablet PO (17:03)
[2024-08-06 22:05] LABS: Pathology Specimen OB SEE PATHOLOGY REPORT
[2024-08-06] MEDS: Acetaminophen 500 MG Tablet 1000 MG PO (22:14)
[2024-08-07] VITALS (11 sets, daily range): BP systolic 115–127; BP diastolic 58–79; PULSE 72–97; RESP 14–18; TEMP 36.2–37.1; O2SAT 97–98
--- NOTE | 2024-08-07 01:50 | NURSING ---
This RN in room to obtain blood sugar on . This RN obtaining blood sugar, crying. This RN asks patient if she would like this RN to get a formula bottle ready for her to feed . Patient barely responds, slightly nods head yes. Patient appears tearful and very slow moving. continues to cry as this RN hands bottle to patient. Patient unable to bring bottle to infants mouth, stares at crying infant and begins to cry. Patient begins to hyperventilate. When this RN asks patient what is wrong, patient responds with I'm so overwhelmed . This RN takes infant to feed infant bottle to him. Patients at bedside comforting patient. This RN reassuring patient that everything with the is going well, that infant is just crying because he is hungry, and instructs patient to take some deep breaths. Patient barely speaking, just nodding or shaking head slightly when asked questions. This RN suggests going to sleep for awhile, while sleeps in his crib. Patient and in agreement.
--- NOTE | 2024-08-07 08:18 | PCM.PN.CNM ---
Subjective Subjective Patient doing well without complaints. Tolerating PO. Ambulating and voiding without difficulty. Feeding well. Denies chest pain, shortness of breath, calf pain/swelling, fevers, chills, lightheadedness. Objective Data Objective Data Vital Signs: Vital Signs Temp Pulse Resp BP Pulse Ox O2 Del Method 97.2 F L 78 18 123/65 H 97 Room Air 08/07/24 04:37 08/07/24 04:37 08/07/24 04:37 08/07/24 04:37 08/07/24 04:37 08/07/24 04:37 Oxygen Delivery Method Room Air Weight: 219 lb 5.759 oz Body Mass Index (BMI) 33.3 Intake & Output: Intake and Output for Last 24 Hours 08/05/24 08/06/24 08/07/24 23:59 23:59 23:59 Intake Total 1583 / 1583 Output Total 2150 / 2150 300 / 300 Balance -567 / -567 -300 / -300 Lab / Micro Data 08/06/24 00:15 Physical Exam Const alert Neck full ROM Lymph Lymphatic: no lymphadenopathy noted Chest inspection of chest normal Resp normal respiratory effort and normal air movement Cardio regular rate and regular rhythm GI normal to inspection, nondistended, normoactive bowel sounds Uterus Palpation: uterus fundus firm Extremity normal to inspection and no calf tenderness Extremity Narrative: trace edema Skin no rashes or lesions noted Neuro oriented x3 Psych mental status grossly normal Assessment & Plan (1) (spontaneous vaginal delivery): COMMENT: 36 weeks PPROM [place] PLAN: s/p PPD # 1 1. routine post delivery care 2. bottle feeding- support given, ariella positive. 3. rh positive 4. rubella immune 5. plan d/c home tomorrow
[2024-08-07] MEDS: Benzocaine/Lanolin/Aloe Vera 85 GM Spray 1 SPRAY TOPICAL (08:53)
[2024-08-08] VITALS (7 sets, daily range): BP systolic 110–122; BP diastolic 64–66; PULSE 82–94; RESP 16; TEMP 36.9–37.3; O2SAT 98
--- NOTE | 2024-08-08 06:58 | NURSING ---
Mother emotional and crying overnight when infant crying. Observed mother feeding and interacting with infant and consoling infant prior to feeding. RN supported patient.
--- NOTE | 2024-08-08 07:21 | PCM.PN.CNM ---
Subjective Subjective Patient doing well without complaints. Tolerating PO. Ambulating and voiding without difficulty. Feeding well. Denies chest pain, shortness of breath, calf pain/swelling, fevers, chills, lightheadedness. Objective Data Objective Data Vital Signs: Vital Signs Temp Pulse Resp BP Pulse Ox O2 Del Method 98.5 F 87 16 122/66 H 98 Room Air 08/08/24 02:00 08/08/24 02:00 08/08/24 02:00 08/08/24 02:00 08/08/24 02:00 08/08/24 02:00 Oxygen Delivery Method Room Air Weight: 219 lb 5.759 oz Body Mass Index (BMI) 33.3 Intake & Output: Intake and Output for Last 24 Hours 08/06/24 08/07/24 08/08/24 23:59 23:59 23:59 Intake Total 1641.67 / 1641.67 Output Total 2150 / 2150 300 / 300 Balance -508.33 / -508.33 -300 / -300 Lab / Micro Data 08/06/24 00:15 Physical Exam Const alert Neck full ROM Lymph Lymphatic: no lymphadenopathy noted Chest inspection of chest normal Resp normal respiratory effort and normal air movement Cardio regular rate and regular rhythm GI normal to inspection, nondistended, normoactive bowel sounds Uterus Palpation: uterus fundus firm Extremity normal to inspection and no calf tenderness Extremity Narrative: trace edema Skin no rashes or lesions noted Neuro oriented x3 Psych mental status grossly normal Assessment & Plan (1) (spontaneous vaginal delivery): COMMENT: 36 weeks PPROM [place] PLAN: s/p PPD # 2 1. routine post delivery care 2. bottle feeding- support given 3. rh positive 4. rubella immune 5. plan d/c home vs hotel status based on infant status.
--- NOTE | 2024-08-08 08:06 | NURSING ---
Reviewed and agreed with Norma RN charting.
--- NOTE | 2024-08-08 08:08 | NURSING ---
Reviewed and agreed with Norma RN charting.
--- NOTE | 2024-08-08 13:00 | CASEMGMT ---
Social Work Assessment Labor and Delivery Unit Patient Address: [facility]?? [place] [address] Phone number: Date of Referral: 08/06/2024 Time of Referral: 16:04 Referred By: Lisa Rubio Date of Intervention: 08/08/2024 Time of Intervention: 13:01 Reason for Referral: Exhibiting anxiety symptoms History obtained from: Medical records, mother of baby (MOB) and father of baby (FOB).? Household composition: MOB, FOB (John Cruz, age 23) and son Linden, born 08/06/2024. Patient's parent/guardian status: MOB and FOB are not but have been together for almost 2 years. Both are actively involved and will be providing care for baby. MOB denied any concerns with domestic violence and described a positive and supportive relationship with the FOB. Medical History: ?:1, Para, now 1. MOB received PNC through [facility] beginning at 9 weeks and 0 days and visits appeared to be routine. Apgars: 8 and 9. Weight: 2945 grams. Trimming Machine Operator: Not yet identified but will be through [facility] in [place]. Educational Status: MOB and FOB denied any issues or concerns with reading or writing. MOB has some college as well as a Returns Clerk Certification. FOB reported he has both High School as well as Vocational training. Financial Status: MOB and FOB reported their income is sufficient to meet the needs of their family at this time. 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 HEENA is uncertain at this time if she is going to return to work multimedia specialist or department sales manager after her maternity leave.? FOB is currently employed multimedia specialist as a maddox and will be taking a minimum of a week off to help provide care for and support the MOB but is able to take off additional time if needed. During times when MOB and FOB are working, maternal grandparents (MGP?s) and PGP?s (PGP?s) as well as additional family members will be able to provide childcare as needed. Infant Supplies: MOB and FOB reported they have all the supplies they need for baby at this time including but not limited to: Car Seat, bassinet, pack-n-play, crib, diapers, bottles and clothing. Childcare/Caregiver(s):? MOB reported that during times when MOB and FOB are working, maternal grandparents (MGP?s) and PGP?s (PGP?s) as well as additional family members will be able to provide childcare as needed. When MOB and FOB are home, both will provide care for . Transportation:? MOB and FOB reported they are both licensed drivers and have a reliable vehicle to take baby to and from all medical appointments. No transportation issues identified. Programs/Agencies Involved: MOB and TREY denied any current programs or agencies involved at this time but will be looking into [facility] upon discharge. TREY reported he used to be involved in counseling as child to help cope with parental divorce however reported that issues have since been resolved. Children Services/Legal Issues:? Denied. Behavioral Health Issues: ??Mental Health History: MOB and FOB denied any history of mental health. ?Substance Use History: Denied.?Family History: TREY reported that alcoholism runs on his father?s side of the family. ??Drug Screens: ?None obtained at the time of this admission. ?? Family/Social Stressors: ?MOB and FOB denied any current family or social stressors. Support Systems: Ample.? MOB and FOB identified each other as their biggest supports and also identified MGP?s, PGP?s and ?s aunts and uncles on both sides of the family. ?MOB and FOB identified a strong support system at this time. Depression/Shaken Baby/Safe Sleeping: general lithographic worker provided verbal and written education on PPD, Safe Sleeping and Shaken Baby.? Parents verbalized an understanding. ??? ASSESSMENT:? MOB and FOB provided consent to social work visit. Upon arrival, MOB was lying in the hospital bed and FOB and paternal aunt were sitting at MOB?s bedside. [place] was with nursing getting a procedure done at the beginning of the visit. MOB and FOB were agreeable to the paternal aunt being present during the visit/assessment. Both MOB and FOB were verbally engaged. general lithographic worker observed positive interaction between the MOB and FOB. Towards the end of the session. returned and the paternal aunt held and was observed to be very attentive and engaged with and was gently.? At the end of the visit, web content & social media manager requested to speak with the MOB alone which MOB and FOB were both agreeable to.? At that time, was handed to the MOB who held closer to her, looked at often, smiled and stroked and also appeared to be very gentle and attentive when holding . When speaking alone to web content & social media manager, MOB denied any domestic violence and reported feeling safe at home.? MOB denied any drug or alcohol abuse concerns or unmanaged mental health concerns with either herself or the FOB. MOB reported feeling anxious in the beginning but is feeling less stressed and more comfortable now that she has switched from to formula. No additional concerns/questions or needs identified at this time. Safe Plan of Care for related to substance use: N/A; not needed. ? PLAN:? Baby to be discharged home when ready.? general lithographic worker also provided written information on depression, depression resources and Help Me Grow as additional resources offered by web content & social media manager which MOB and FOB accepted. No other services requested or indicated. Brianna Moreno, REGISTRATION SPECIALIST, SAND FILLER
--- NOTE | 2024-08-13 14:35 | NURSING ---
Follow up phone call made, no answer, voicemail left
== END 2024-08-08 16:10 | disposition home or self-care (01) | DRG 807 ==
LOC: WPOUT 00:03 → WP 00:03
PROVIDERS: Obstetrics & Gynecology; Admitting Provider Registered Nurse; PCP Family Medicine; Referring Provider Registered Nurse; Visit Provider Registered Nurse
DX: O42.913 Preterm premature rupture of membranes, unspecified as to length of time between rupture and onset of labor, third trimester (principal); Z37.0 Single live birth; O35.EXX0 Maternal care for other (suspected) fetal abnormality and damage, fetal genitourinary anomalies, not applicable or unspecified; O69.81X0 Labor and delivery complicated by cord around neck, without compression, not applicable or unspecified; O70.0 First degree perineal laceration during delivery; Z3A.36 36 weeks gestation of pregnancy
CPT/HCPCS: 59025; 59050; 84112; 85025; 86780; 86850; 86900; 86901; 87077; 87081; 87186; 87653; 88307; 99221; J7120; G0378; J0290

== ENCOUNTER → 2024-09-13 | Outpatient (CLI) | payer OTHER, SELFPAY ==
[2024-09-23 07:58] LABS: HPV Reflexed? NOT INDICATED
== END | disposition home or self-care (01) ==
PROVIDERS: PCP Family Medicine; Referring Provider Obstetrics & Gynecology; Visit Provider Obstetrics & Gynecology
DX: Z12.4 Encounter for screening for malignant neoplasm of cervix (principal)
CPT/HCPCS: 88175; G0145

== ENCOUNTER → 2025-03-22 | Outpatient (CLI) | payer OTHER, SELFPAY ==
[2025-03-22 15:15] LABS: hCG Titer Quant., Serum < 1 mIU/mL (<9 non-preg)
== END | disposition home or self-care (01) ==
PROVIDERS: PCP Family Medicine; Referring Provider Advanced Practice Midwife; Visit Provider Advanced Practice Midwife
DX: Z34.90 Encounter for supervision of normal pregnancy, unspecified, unspecified trimester (principal)
CPT/HCPCS: 36415; 84702